=== PATIENT | female | born 1985 | race Caucasian/White ===

== ENCOUNTER 2018-03-23 15:18 | Emergency (ER) | payer SELFPAY ==
[~2018-03-23] VITALS: Ht 162.6 cm; Wt 118.0 kg
[~2018-03-23 15:18] MED LIST: GLUCTAB PO; IBUP800T23 PO; ROBA750T3 PO
[2018-03-23 15:31] VITALS: BP 148/80; PULSE 80; RESP 16; TEMP 98.4; O2SAT 99
[2018-03-23] MEDS ORDERED: METF1000 PO (15:52)
[2018-03-23] MEDS ORDERED: LEXA10TA PO (15:52)
--- NOTE | 2018-03-23 16:00 | PD ---
HPI Chief Complaint: Musculoskeletal Complaint Time Seen by Provider: 15:56 Travel History International Travel<30 days: No Contact w/Intl Traveler<30days: No Traveled to known affect area: No History of Present Illness HPI 32-year-old female presents to the emergency department with complaint of pain to the top of her right foot after she tripped over a curb yesterday and fell, injuring her foot. Denies hitting her head or loss of consciousness. Denies neck pain or back pain. Denies paresthesias, loss of sensation, decreased range of motion, decreased strength to the affected extremity. Has been ambulatory on the affected extremity. Rates pain 5/10. Worse with ambulation and palpation. Better at rest. Has tried ibuprofen, ice, elevation for symptom management. No known allergies. Dr. Perkins his primary care provider. History of type 2 diabetes mellitus, depression, seasonal allergies. Has no other medical complaints. No other modifying factors or associated signs and symptoms. PFSH Past Medical History Cancer: No Cardiovascular Problems: No Diabetes: Yes Endocrine: Yes Genitourinary: No Hepatitis: No Hiatal Hernia: No Immune Disorder: No Musculoskeletal: No Neurologic: No Psychiatric: No Reproductive: Yes (POLYCYSTIC OVARIAN DISORDER) Respiratory: No Thyroid Disease: No Past Surgical History AICD: No Joint Replacement: No Pacemaker: No Social History Alcohol Use: No Tobacco Use: No Substance Use: No Allergies-Medications (Allergen,Severity, Reaction): Coded Allergies: No Known Allergies (Verified Adverse Reaction, Unknown, 03/23/18) Reported Meds & Prescriptions Reported Meds & Active Scripts Active Ibuprofen 800 Mg Tab 800 Mg PO Q6HR PRN Reported Lexapro (Escitalopram Oxalate) 10 Mg Tab 10 Mg PO DAILY Metformin (Metformin HCl) 1,000 Mg Tab 1,000 Mg PO BIDPC Review of Systems Except as stated in HPI: all other systems reviewed are Neg Physical Exam Narrative GENERAL: Well-nourished, well-developed feet patient, in no acute distress SKIN: Warm and dry. HEAD: Atraumatic. Normocephalic. EYES: Pupils equal and round. No scleral icterus. No injection or drainage. ENT: Mucosa pink and moist. Airway patent. NECK: Trachea midline. CARDIOVASCULAR: Regular rate. RESPIRATORY: No accessory muscle use. GASTROINTESTINAL: Obese. MUSCULOSKELETAL: Top of right foot with tenderness on palpation to the metatarsal region; without erythema, edema, ecchymosis; no obvious deformity. No tenderness to palpation of the ankle. Right lower extremity is supple and non-tense with 2+ pedal pulse and sensory intact without erythema or edema. No obvious deformities. No clubbing. No cyanosis. No edema. NEUROLOGICAL: Awake and alert. Oriented 3. No obvious cranial nerve deficits. Motor grossly within normal limits. Normal speech. PSYCHIATRIC: Appropriate mood and affect; insight and judgment normal. Data Data Last Documented VS Vital Signs Date Time Temp Pulse Resp B/P (MAP) Pulse Ox O2 Delivery O2 Flow Rate FiO2 03/23/18 15:31 98.4 80 16 148/80 (102) 99 Orders Orders Foot, Complete (Shw0oti) (03/23/18 16:00) Ed Discharge Order (03/23/18 16:57) [facility] Medical Decision Making Medical Screen Exam Complete: Yes Emergency Medical Condition: Yes Medical Record Reviewed: Yes Differential Diagnosis Sprain, fracture, injury Narrative Course 32-year-old female with right foot injury. I offered the patient pain medication and she declined. Right foot x-ray ordered. 1644: Foot X-Ray 03/23/18 1600 Signed Impressions: CONCLUSION: Negative examination Discussed x-ray findings with the patient. Patient says she has crutches at home for support. She has an Jose bandage. Ibuprofen prescribed for home. Instructed patient to follow up with primary care provider. Patient verbalizes understanding and agreement with treatment plan. Patient is medically cleared and stable for discharge. Discussed reasons to return to the emergency department. Patient agrees with treatment plan. The patients vital signs are stable and the patient is stable for outpatient follow-up and treatment. Patient discharged home, stable and in no acute distress. Diagnosis Primary Impression: Right foot sprain Qualified Codes: S93.601A - Unspecified sprain of right foot, initial encounter Referrals: [facility] Primary Care Physician Patient Instructions: Foot Sprain (ED), General Instructions Additional Instructions: Tylenol or ibuprofen as directed and as needed for pain and inflammation Rest, ice, compress, and elevate extremity to decrease pain and inflammation Jose bandage for compression and support Splint for support; do not remove splint until cleared Crutches for support Avoid aggravating activity; increase activity as tolerated Follow-up with primary care provider Return to the emergency department immediately with worsening of symptoms Med/Other Pt SpecificInfo: Prescription(s) given Scripts Ibuprofen (Ibuprofen) 800 Mg Tab 800 MG PO Q6HR Y for PAIN, #20 TAB 0 Refills Prov: Ramila Mehta 03/23/18 Disposition: 01 DISCHARGE HOME Condition: Stable Ramila Mehta Mar 23, 2018 16:00
[2018-03-23] MEDS ORDERED: IBUP1TAB7 PO (16:14)
--- NOTE | 2018-03-23 16:42 | RADRPT ---
EXAM DATE: 03/23/2018 4:16 PM EDT AGE/SEX: 32 years / Female INDICATIONS: Right foot,first and second metatarsal pain post fall. CLINICAL DATA: This is the patient's initial encounter. Patient reports that signs and symptoms have been present for 1 day and indicates a pain score of 5/10. MEDICAL/SURGICAL HISTORY: None. . Three previous right foot fractures COMPARISON: No prior exams available for comparison. FINDINGS: Bony structures are intact and in normal alignment. Osseous density is normal. Soft tissues are unre markable. No radiopaque foreign bodies seen. CONCLUSION: Negative examination Electronically signed by: Javier Obrien MD 03/23/2018 4:41 PM EDT
== END 2018-03-23 17:51 | disposition home or self-care (01) ==
LOC: NEPK 15:18
DX: S93.601A Unspecified sprain of right foot, initial encounter (principal); E11.9 Type 2 diabetes mellitus without complications; F32.9 Major depressive disorder, single episode, unspecified; W01.0XXA Fall on same level from slipping, tripping and stumbling without subsequent striking against object, initial encounter; Z79.84 Long term (current) use of oral hypoglycemic drugs
CPT/HCPCS: 73630; 99283